=== PATIENT | female | born 1980 | race Caucasian/White ===

== ENCOUNTER 2021-03-17 20:09 | Inpatient (IN) | payer OTHER ==
[~2021-03-17] VITALS: Ht 165.1 cm; Wt 72.7 kg
[2021-03-17 20:30] VITALS: BP 115/64
[2021-03-17] MEDS: LACTATED RINGERS 1,000 ML IV SCH (20:30)
[2021-03-17] MEDS ORDERED: CALCIUM CARBONATE 500 MG TAB.CHEW PO PRN (21:00)
[2021-03-17] MEDS ORDERED: FENTANYL PF 100 MCG/2ML IVPush PRN (21:00)
[2021-03-17] MEDS ORDERED: TERBUTALINE 1 MG/ML, 1ML SQ PRN (21:00)
[2021-03-17] MEDS ORDERED: METOCLOPRAMIDE 5 MG/ML, 2ML IVPush PRN (21:00)
[2021-03-17] MEDS ORDERED: PLEASE ENTER ALLERGIES MC SCH ×2 (21:00→22:00)
[2021-03-17] MEDS ORDERED: ALUMINUM/MAG/SIMETHICONE 30 ML UDC PO PRN (21:00)
[2021-03-17] MEDS ORDERED: MISOPROSTOL 25 MCG TABLET VG PRN (21:00)
[2021-03-17] MEDS ORDERED: OXYTOCIN 30U/ 0.9% NaCL 500ML 500 ML IV ONE (21:00)
[2021-03-17] MEDS ORDERED: FENTANYL PF 100 MCG/2ML IV PRN (21:00)
[2021-03-17] MEDS ORDERED: TERBUTALINE 1 MG/ML, 1ML IVPush PRN (21:00)
[2021-03-17] MEDS ORDERED: ONDANSETRON 2MG/ML, 2ML IVPush PRN (21:00)
[2021-03-17] MEDS ORDERED: D5%-LACTATED RINGERS 1,000 ML IV SCH (21:00)
[2021-03-17 21:02] LABS: BASOPHILS % (AUTO) 1 % (0-1); EOSINOPHILS % (AUTO) 0 % (1-7); LYMPHOCYTES % (AUTO) 17 % (22-44); MEAN CORPUSCULAR HEMOGLOBIN 32.9 pg (27.0-34.8); MEAN PLATELET VOLUME 9.3 fL (7.4-10.4); MONOCYTES % (AUTO) 5 % (2-9); NEUTROPHILS % (AUTO) 77 % (42-75); PLATELET COUNT 246 x10^3/uL (130-400); RED BLOOD COUNT 3.79 x10^6/uL (3.82-5.3); RED CELL DISTRIBUTION WIDTH 12.8 % (9.6-15.2)
[2021-03-17] MEDS ORDERED: NEWBORN KIT ONE (21:20)
[2021-03-17] MEDS ORDERED: LIDOCAINE 1%, 20ML ONE (21:20)
[2021-03-17] MEDS ORDERED: MISOPROSTOL 200 MCG TABLET ONE (21:20)
[2021-03-17] MEDS ORDERED: OXYTOCIN 30U/ 0.9% NaCL 500ML 500 ML ONE (21:20)
[2021-03-17] MEDS ORDERED: OXYTOCIN 30U/ 0.9% NaCL 500ML 500 ML IV PRN (21:30)
[2021-03-18] MEDS: LACTATED RINGERS 1,000 ML IV SCH ×4 (03:19→23:35)
[2021-03-18] MEDS ORDERED: FENTANYL/BUPIV./NS/PF 250 ML EPIDCONT ONE (16:54)
[2021-03-18] MEDS ORDERED: LIDOCAINE/PF 1.5% EPI 1:200K, 10 ML ONE (16:54)
[2021-03-18] MEDS ORDERED: SODIUM CITRATE/CITRIC ACID 15 ML UDC ONE ×2 (17:44→17:45)
[2021-03-18] MEDS ORDERED: EPHEDRINE 50 MG/ML, 1ML IVPush PRN ×2 (18:00→20:30)
[2021-03-18] MEDS ORDERED: FENTANYL/BUPIV./NS/PF 250 ML EPIDCONT SCH (18:00)
[2021-03-18] MEDS ORDERED: NALOXONE 0.4 MG/ML, 1ML IVPush PRN (18:00)
[2021-03-18] MEDS ORDERED: LACTATED RINGERS 1,000 ML IV SCH (19:00)
[2021-03-18] MEDS ORDERED: LACTATED RINGERS 1,000 ML IVBOLUS PRN (19:00)
[2021-03-18] MEDS ORDERED: METOCLOPRAMIDE 5 MG/ML, 2ML IV ONE (19:30)
[2021-03-18] MEDS ORDERED: SODIUM CITRATE/CITRIC ACID 30 ML UDC PO ONE (19:30)
[2021-03-18] MEDS ORDERED: LACTATED RINGERS 1,000 ML IVBOLUS ONE (19:30)
[2021-03-18] MEDS ORDERED: AZITHROMYCIN 500 MG in SODIUM CHLORIDE 0.9% 250 ML IV ONE (20:00)
[2021-03-18] MEDS ORDERED: EPHEDRINE 50 MG/ML, 1ML ONE (20:07)
[2021-03-18] MEDS ORDERED: CEFAZOLIN 1,000 MG ONE (20:07)
[2021-03-18] MEDS ORDERED: LIDOCAINE-MPF 2% ,5ML ONE (20:07)
[2021-03-18] MEDS ORDERED: OXYTOCIN 10 UNITS/ML, 1ML ONE ×2 (20:07→20:50)
[2021-03-18] MEDS ORDERED: ONDANSETRON 2MG/ML, 2ML IVPush PRN (20:30)
[2021-03-18] MEDS ORDERED: FENTANYL PF 100 MCG/2ML IV PRN (20:30)
[2021-03-18] MEDS ORDERED: SIMETHICONE 80 MG CHEW TAB PO PRN (20:30)
[2021-03-18] MEDS ORDERED: HYDROcodone/APAP 5/325 TABLET PO PRN ×2 (20:30)
[2021-03-18] MEDS ORDERED: ACETAMINOPHEN 325 MG TABLET PO PRN (20:30)
[2021-03-18] MEDS ORDERED: morphine SULFATE 10 MG/ML, 1ML IVPush PRN (20:30)
[2021-03-18] MEDS ORDERED: OXYcodone 5 MG/5 ML ORAL.SOL UDC PO PRN (20:30)
[2021-03-18] MEDS ORDERED: IBUPROFEN 600 MG TABLET PO PRN (20:30)
[2021-03-18] MEDS ORDERED: MISOPROSTOL 200 MCG TABLET PR PRN (20:30)
[2021-03-18] MEDS ORDERED: ONDANSETRON 2MG/ML, 2ML IV PRN (20:30)
[2021-03-18] MEDS ORDERED: MEPERIDINE/PF 25MG/0.5ML IVPush PRN (20:30)
[2021-03-18] MEDS ORDERED: METOCLOPRAMIDE 5 MG/ML, 2ML IV PRN (20:30)
[2021-03-18] MEDS ORDERED: KETOROLAC 30 MG/1 ML ONE (20:52)
[2021-03-18 23:35] VITALS: BP 118/65
[2021-03-18] MEDS: OXYTOCIN 30U/ 0.9% NaCL 500ML 500 ML IV SCH (23:35)
[2021-03-19] MEDS: KETOROLAC 30 MG/1 ML IV SCH ×4 (03:06→20:17)
[2021-03-19 03:30] VITALS: BP 114/70
[2021-03-19] MEDS: LACTATED RINGERS 1,000 ML IV SCH ×2 (04:30→06:30)
[2021-03-19 05:08] LABS: BASOPHILS % (AUTO) 0 % (0-1); EOSINOPHILS % (AUTO) 0 % (1-7); LYMPHOCYTES % (AUTO) 12 % (22-44); MEAN CORPUSCULAR HEMOGLOBIN 33.6 pg (27.0-34.8); MEAN CORPUSCULAR HGB CONC 34.6 g/dL (32.4-35.8); MEAN PLATELET VOLUME 9.2 fL (7.4-10.4); MONOCYTES % (AUTO) 5 % (2-9); NEUTROPHILS % (AUTO) 82 % (42-75); PLATELET COUNT 190 x10^3/uL (130-400); RED BLOOD COUNT 3.24 x10^6/uL (3.82-5.3); RED CELL DISTRIBUTION WIDTH 12.7 % (9.6-15.2)
[2021-03-19] MEDS: OXYTOCIN 30U/ 0.9% NaCL 500ML 500 ML IV SCH (06:30)
[2021-03-19 07:10] VITALS: BP 110/63
[2021-03-19] MEDS: DOCUSATE 100 MG CAPSULE PO PRN ×2 (08:08→20:17)
[2021-03-19] MEDS: PRENATAL VIT/IRON/FA 1 EACH TABLET PO SCH (08:09)
[2021-03-19 11:59] VITALS: BP 104/70
[2021-03-19] MEDS: ACETAMINOPHEN 325 MG TABLET PO PRN ×2 (12:07→16:21)
[2021-03-19 16:25] VITALS: BP 111/71
[2021-03-19 19:38] VITALS: BP 111/74
[2021-03-20] MEDS: ACETAMINOPHEN 325 MG TABLET PO PRN (02:13)
[2021-03-20] MEDS: KETOROLAC 30 MG/1 ML IV SCH ×2 (02:13→08:24)
[2021-03-20 06:52] VITALS: BP 107/74
[2021-03-20] MEDS: PRENATAL VIT/IRON/FA 1 EACH TABLET PO SCH (08:23)
[2021-03-20] MEDS: DOCUSATE 100 MG CAPSULE PO PRN (08:23)
[2021-03-20] MEDS ORDERED: IBUP-1222 PO (11:59)
== END 2021-03-20 13:25 | disposition home or self-care (01) | DRG 788 ==
LOC: LDIP 20:09 → 2NW 03-18 23:21
PROVIDERS: ADMIT Obstetrics & Gynecology Female Pelvic Medicine and Reconstructive Surgery; ATTEND Obstetrics & Gynecology Female Pelvic Medicine and Reconstructive Surgery
PROC: 10D00Z1 Extraction of Products of Conception, Low, Open Approach (ICD-10-PCS; principal; 2021-03-18)
DX: O62.0 Primary inadequate contractions (principal); O69.81X0 Labor and delivery complicated by cord around neck, without compression, not applicable or unspecified; Z3A.39 39 weeks gestation of pregnancy; Z37.0 Single live birth
CPT/HCPCS: 36415; J3490; 85025; 86592; 86850; 86900; G0378; J0456; J0690; J1885; J2590; J2765; J7050; J7120